=== PATIENT | male | born 1945 | race Caucasian/White ===

== ENCOUNTER 2016-07-01 09:01 | Outpatient (CLI) | payer MEDICARE, MEDICAID ==
--- NOTE | 2016-07-01 16:26 | RAD ---
BILATERAL KNEES WEIGHTBEARING: Date: 07-01-16 Technique: Two upright views of each knee were obtained. FINDINGS: There is complete obliteration of the medial joint space in each knee. Osteophytes and bony scleros is are present, typical of osteoarthritis. The lateral joint spaces are preserved. No fractures w ere appreciated. There is calcification along the medial aspect of the left knee which could be fro m a prior medial collateral ligament injury. IMPRESSION: Severe osteoarthritis with complete loss of each medial joint space. POS: HOME
== END 2016-07-01 09:02 | disposition home or self-care (01) ==
LOC: BURRAD 09:01
PROVIDERS: ATTEND Family Medicine
DX: M17.0 Bilateral primary osteoarthritis of knee (principal)
CPT/HCPCS: 73565

== ENCOUNTER 2016-12-13 15:27 | Outpatient (CLI) | payer MEDICARE, MEDICAID ==
[2016-12-13 16:30] LABS: #Basophils 0.1 thou/uL (0.0-0.2); #Lymphocytes 1.1 thou/uL (1.20-3.40); #Monocytes 0.6 thou/uL (0.11-0.59); #Neutrophils 5.6 thou/uL (1.40-6.50); %Basophils 0.7 % (0.0-1.0); %Eosinophils 0.2 % (0.0-10.0); %Lymphocytes 14.5 % (21.0-51.0); %Monocytes 8.5 % (0.0-10.0); %Neutrophils 76.1 % (42.0-75.0); Hemoglobin 15.7 g/dL (14.0-18.0); Mean Corpuscular HGB CONC 33.5 g/dL (32.0-36.0); Mean Corpuscular Hemoglobin 31.8 pg (27.0-31.0); Mean Corpuscular Volume 94.8 fl (80.0-94.0); Mean Platelet Volume 10.1 fL (7.4-10.4); Platelet Count 213 thou/uL (130-400); RBC Distribution Width 12.1 % (11.5-14.5); Red Blood Cell (RBC) Count 4.94 mill/uL (4.70-6.10); White Blood Cell (WBC) Count 7.4 thou/uL (4.8-10.8)
[2016-12-13 16:54] LABS: ALT (SGPT) 16 U/L (8-55); AST (SGOT) 20 U/L (5-34); Albumin 3.8 g/dL (3.4-4.8); Alkaline Phosphatase 95 U/L (40-150); Anion Gap 15 mmol/L (10-20); BUN (Urea Nitrogen) 11 mg/dL (8.4-25.7); Bilirubin, Total 0.7 mg/dL (0.2-1.2); Calc. Creatinine Clearance 0 mL/min (70-130); Carbon Dioxide 21 mmol/L (23-31); Chloride 98 mmol/L (98-107); Estimated GFR-MDRD Greater than 90; Globulin 3.1 g/dL (2.4-3.5); Glucose 91 mg/dL (83-110); Lipase 30 U/L (8-78); Potassium 4.8 mmol/L (3.5-5.1); Protein, Total 6.9 g/dL (5.8-8.1); Sodium 129 mmol/L (136-145)
== END 2016-12-13 15:28 | disposition home or self-care (01) ==
LOC: HPCALD 15:27
PROVIDERS: ATTEND Family Medicine
DX: R19.7 Diarrhea, unspecified (principal); R10.84 Generalized abdominal pain
CPT/HCPCS: 36415; 80053; 83690; 85025

== ENCOUNTER 2016-12-14 17:23 | Outpatient (CLI) | payer MEDICARE, MEDICAID | END 2016-12-14 17:24 | disposition home or self-care (01) | LOC: BURLAB 17:23 | PROVIDERS: ATTEND Family Medicine | DX: R19.7 Diarrhea, unspecified (principal) | CPT/HCPCS: 83630; 87015; 87045; 87046; 87177; 87324; 87449; 87899 ==

== ENCOUNTER 2017-02-22 10:38 | Outpatient (CLI) | payer MEDICARE, MEDICAID ==
[2017-02-22 11:34] LABS: #Eosinphils 0.1 thou/uL (0.0-0.7); #Lymphocytes 1.2 thou/uL (1.20-3.40); #Monocytes 0.7 thou/uL (0.11-0.59); #Neutrophils 5.3 thou/uL (1.40-6.50); %Basophils 0.6 % (0.0-1.0); %Eosinophils 1.8 % (0.0-10.0); %Lymphocytes 16.6 % (21.0-51.0); %Monocytes 9.2 % (0.0-10.0); %Neutrophils 71.8 % (42.0-75.0); Hemoglobin 16.2 g/dL (14.0-18.0); Mean Corpuscular HGB CONC 34.1 g/dL (32.0-36.0); Mean Corpuscular Hemoglobin 33.3 pg (27.0-31.0); Mean Corpuscular Volume 97.7 fl (80.0-94.0); Mean Platelet Volume 9.1 fL (7.4-10.4); Platelet Count 189 thou/uL (130-400); RBC Distribution Width 11.3 % (11.5-14.5); Red Blood Cell (RBC) Count 4.88 mill/uL (4.70-6.10); White Blood Cell (WBC) Count 7.4 thou/uL (4.8-10.8)
[2017-02-22 11:45] LABS: PSA-Asymptomatic (SCREENING) 2.11 ng/mL (0-4.0); Thyroid Stimulating Hormone 2.6498 uIU/mL (0.35-4.94)
[2017-02-22 12:07] LABS: ALT (SGPT) 13 U/L (8-55); AST (SGOT) 18 U/L (5-34); Albumin 3.7 g/dL (3.4-4.8); Alkaline Phosphatase 113 U/L (40-150); Anion Gap 13 mmol/L (10-20); BUN (Urea Nitrogen) 15 mg/dL (8.4-25.7); Bilirubin, Total 1.1 mg/dL (0.2-1.2); Calc. Creatinine Clearance 0 mL/min (70-130); Calcium 9.3 mg/dL (7.8-10.44); Carbon Dioxide 25 mmol/L (23-31); Cardiac Risk 2.6 (Less than 4.5); Chloride 99 mmol/L (98-107); Cholesterol 140 mg/dl (< 200 Desired); Estimated GFR-MDRD Greater than 90; Globulin 3.2 g/dL (2.4-3.5); Glucose 70 mg/dL (83-110); HDL Cholesterol 54 mg/dL (>60 Neg Risk); LDL Cholesterol, Calculated 74 mg/dL; Potassium 4.4 mmol/L (3.5-5.1); Protein, Total 6.9 g/dL (5.8-8.1); Sodium 133 mmol/L (136-145); Triglycerides 60 mg/dL (Less than 150)
[2017-02-22 17:38] LABS: Valproic Acid (Depakene) 60.7 ug/mL (50.0-100.0)
== END 2017-02-22 10:39 | disposition home or self-care (01) ==
LOC: HPCALD 10:38
PROVIDERS: ATTEND Family Medicine
DX: Z12.5 Encounter for screening for malignant neoplasm of prostate (principal); Z13.6 Encounter for screening for cardiovascular disorders; F31.9 Bipolar disorder, unspecified
CPT/HCPCS: 36415; 80053; 80061; 80164; 84443; 85025; G0103

== ENCOUNTER 2018-07-10 10:03 | Emergency (ER) | payer MEDICARE, OTHER ==
[2018-07-10 10:36] LABS: #Basophils 0.1 thou/uL (0.0-0.2); #Eosinphils 0.1 thou/uL (0.0-0.7); #Lymphocytes 0.7 thou/uL (1.20-3.40); #Monocytes 0.4 thou/uL (0.11-0.59); #Neutrophils 2.2 thou/uL (1.40-6.50); %Basophils 1.9 % (0.0-1.0); %Eosinophils 2.2 % (0.0-10.0); %Lymphocytes 20.3 % (21.0-51.0); %Monocytes 10.3 % (0.0-10.0); %Neutrophils 65.4 % (42.0-75.0); Mean Corpuscular HGB CONC 34.4 g/dL (32.0-36.0); Mean Platelet Volume 10.5 fL (7.4-10.4); Platelet Count 133 thou/uL (130-400); RBC Distribution Width 11.6 % (11.5-14.5); White Blood Cell (WBC) Count 3.4 thou/uL (4.8-10.8)
[2018-07-10 10:49] LABS: ALT (SGPT) 17 U/L (8-55); AST (SGOT) 19 U/L (5-34); Albumin 3.5 g/dL (3.4-4.8); Alkaline Phosphatase 106 U/L (40-150); Anion Gap 12 mmol/L (10-20); BUN (Urea Nitrogen) 13 mg/dL (8.4-25.7); Bilirubin, Total 0.6 mg/dL (0.2-1.2); Calc. Creatinine Clearance 0 mL/min (70-130); Calcium 9.2 mg/dL (7.8-10.44); Carbon Dioxide 23 mmol/L (23-31); Chloride 103 mmol/L (98-107); Estimated GFR-MDRD Greater than 90; Globulin 2.9 g/dL (2.4-3.5); Glucose 102 mg/dL (83-110); Potassium 4.7 mmol/L (3.5-5.1); Protein, Total 6.4 g/dL (5.8-8.1); Sodium 133 mmol/L (136-145)
--- NOTE | 2018-07-10 19:22 | RAD ---
CHEST TWO VIEWS: 07/10/18 Comparison is made with the 04/19/15 study. An old fracture of the left 7th rib posterolaterally was noted. It can be seen on the 2015 film. No new fractures were detected, however, dedicated rib films would be needed to better see fine detail. There was no sign of pneumothorax or significant pleural e ffusion. There are no lobar infiltrates. The heart size is normal. there is no vascular congestion or edema. Degenerative changes are present in the spine. IMPRESSION: 1. No acute thoracic findings. 2. Old fracture of the right 7th rib. POS: HOME
== END 2018-07-10 11:16 | disposition home or self-care (01) ==
LOC: BURERS 10:03
DX: S22.31XA Fracture of one rib, right side, initial encounter for closed fracture (principal); D64.9 Anemia, unspecified; I25.10 Atherosclerotic heart disease of native coronary artery without angina pectoris; I50.9 Heart failure, unspecified; I48.91 Unspecified atrial fibrillation; I11.0 Hypertensive heart disease with heart failure; J44.9 Chronic obstructive pulmonary disease, unspecified; F31.9 Bipolar disorder, unspecified; F17.210 Nicotine dependence, cigarettes, uncomplicated; X58.XXXA Exposure to other specified factors, initial encounter
CPT/HCPCS: 71046; 80053; 83880; 84484; 85025; 85379; 93005; 94760; 94799

== ENCOUNTER 2019-02-18 08:06 | Emergency (ER) | payer MEDICARE, OTHER ==
[2019-02-18 08:35] LABS: #Basophils 0.1 thou/uL (0.0-0.2); #Eosinphils 0.1 thou/uL (0.0-0.7); #Lymphocytes 1.4 thou/uL (1.20-3.40); #Monocytes 0.7 thou/uL (0.11-0.59); #Neutrophils 3.7 thou/uL (1.40-6.50); %Basophils 1.3 % (0.0-1.0); %Eosinophils 1.6 % (0.0-10.0); %Lymphocytes 23.2 % (21.0-51.0); %Monocytes 11.9 % (0.0-10.0); %Neutrophils 62.1 % (42.0-75.0); Hemoglobin 14.5 g/dL (14.0-18.0); Mean Corpuscular HGB CONC 32.8 g/dL (32.0-36.0); Mean Corpuscular Volume 97.4 fL (78.0-98.0); Platelet Count 212 thou/uL (130-400); RBC Distribution Width 11.1 % (11.5-14.5); Red Blood Cell (RBC) Count 4.55 mill/uL (4.70-6.10)
[2019-02-18 08:52] LABS: ALT (SGPT) 11 U/L (8-55); AST (SGOT) 18 U/L (5-34); Albumin 3.5 g/dL (3.4-4.8); Alkaline Phosphatase 109 U/L (40-150); Anion Gap 15 mmol/L (10-20); BUN (Urea Nitrogen) 13 mg/dL (8.4-25.7); Bilirubin, Total 0.7 mg/dL (0.2-1.2); Calc. Creatinine Clearance 0 mL/min (70-130); Calcium 9.2 mg/dL (7.8-10.44); Carbon Dioxide 22 mmol/L (23-31); Chloride 96 mmol/L (98-107); Estimated GFR-MDRD 90; Globulin 3.1 g/dL (2.4-3.5); Glucose 68 mg/dL (83-110); Potassium 3.9 mmol/L (3.5-5.1); Protein, Total 6.6 g/dL (5.8-8.1); Sodium 129 mmol/L (136-145)
[2019-02-18] MEDS ORDERED: Dextrose 50% Abboject 50 ML SYRINGE ONE (09:04)
[2019-02-18] MEDS ORDERED: Fentanyl 100 MCG/2 ML VIAL ONE (09:05)
--- NOTE | 2019-02-18 13:11 | CT ---
CT OF THE BRAIN: DATE: 02/18/19 Comparison is made with a [address] CT[address] Atrophy and chronic ischemic changes have advanced in the interval. There is more compensatory dilata tion of the ventricles because of the atrophy. No intracranial bleeding, stroke, or extra-axial hemat bo seen. There is no sign of mass or edema. The calvarium appears intact. The sphenoid sinus and mas toid air cells are clear. No fractures noted. IMPRESSION: 1. No acute intracranial findings. 2. Moderately severe atrophy and chronic ischemic change, which has advanced since the 2015 CT. POS: HOME
--- NOTE | 2019-02-18 13:13 | RAD ---
PORTABLE CHEST: Date: 02/18/19 Comparison is made with the 07/10/18 study. Cardiac size is stable. Old rib fractures are noted on the right as before. The lungs are currently c lear and there are no effusions. Mediastinum shows no widening or shift. IMPRESSION: Chronic changes, but no acute finding. POS: HOME
--- NOTE | 2019-02-18 13:15 | RAD ---
PELVIS 1 VIEW: Date: 02/18/19 An intertrochanteric fracture of the right hip is noted. The lesser trochanter is avulsed and separat ed from the remainder of the bone. There is no dislocation of the femoral heads. Arthritic changes ar e present to a mild degree in each hip joint. The bony pelvis appears intact. Subtle fractures around the SI joints or sacrum would be missed on this study due to overlying gas and fecal material. IMPRESSION: Intertrochanteric fracture of the right femur with avulsion of the lesser trochanter. POS: HOME
== END 2019-02-18 09:58 | disposition short-term general hospital (02) ==
LOC: BURERS 08:06
DX: S72.144A Nondisplaced intertrochanteric fracture of right femur, initial encounter for closed fracture (principal); R55 Syncope and collapse; D64.9 Anemia, unspecified; I25.10 Atherosclerotic heart disease of native coronary artery without angina pectoris; I48.91 Unspecified atrial fibrillation; I11.0 Hypertensive heart disease with heart failure; I50.9 Heart failure, unspecified; J44.9 Chronic obstructive pulmonary disease, unspecified; Z87.891 Personal history of nicotine dependence; F31.9 Bipolar disorder, unspecified; Z79.899 Other long term (current) drug therapy; Z79.51 Long term (current) use of inhaled steroids; W19.XXXA Unspecified fall, initial encounter
CPT/HCPCS: 70450; 71045; 72170; 80053; 83605; 83880; 84484; 85025; 93005; 96361; 96374; 96375; J3010

== ENCOUNTER 2019-02-27 08:23 | Inpatient (IN) | payer MEDICARE, OTHER ==
[2019-02-27] MEDS ORDERED: traMADol HCl 50 MG TAB PO PRN (16:44)
[2019-02-27] MEDS ORDERED: Acetaminophen 325 MG TAB PO PRN (16:44)
[2019-02-27] MEDS: Acetaminophen 500 MG TAB PO SCH (17:44)
[2019-02-27] MEDS: Mirtazapine 15 MG TAB PO SCH (20:15)
[2019-02-27] MEDS: Aspirin 81 mg Enteric Coated Tablet PO SCH (20:15)
[2019-02-27] MEDS: Calcium Carbonate + Vit D 1 TAB PO SCH (20:15)
[2019-02-27] MEDS: Melatonin 3 MG TAB PO SCH (20:15)
[2019-02-27] MEDS: Carbidopa/Levodopa 25-100 mg Tablet PO SCH (20:16)
[2019-02-27] MEDS: Ibuprofen 200 MG TAB PO SCH (22:41)
[2019-02-27] MEDS: AMANTADINE HCL 100 MG PO SCH (22:42)
[2019-02-27] MEDS: Potassium Chloride 20 MEQ TAB PO SCH (22:44)
[2019-02-28] MEDS: Acetaminophen 500 MG TAB PO SCH ×4 (00:13→17:32)
[2019-02-28] MEDS: Ibuprofen 200 MG TAB PO SCH ×3 (05:27→21:28)
[2019-02-28] MEDS ORDERED: Polyethylene Glycol 3350 17 GM Packet PO SCH (09:00)
[2019-02-28] MEDS: Aspirin 81 mg Enteric Coated Tablet PO SCH ×2 (10:00→21:27)
[2019-02-28] MEDS: Finasteride 5 MG TAB PO SCH (10:00)
[2019-02-28] MEDS: FLUoxetine HCl 10 MG CAP PO SCH (10:00)
[2019-02-28] MEDS: Meloxicam 7.5 MG TAB PO SCH (10:03)
[2019-02-28] MEDS: Carbidopa/Levodopa 25-100 mg Tablet PO SCH ×2 (10:04→21:28)
[2019-02-28] MEDS: Calcium Carbonate + Vit D 1 TAB PO SCH ×2 (10:04→21:29)
[2019-02-28] MEDS: Fish Oil 1,000 MG CAP PO SCH (10:04)
[2019-02-28] MEDS: Metoprolol Tartrate 25 MG TAB PO SCH (10:04)
[2019-02-28] MEDS: Potassium Chloride 20 MEQ TAB PO SCH ×2 (10:06→21:28)
[2019-02-28] MEDS: AMANTADINE HCL 100 MG PO SCH ×2 (10:10→22:25)
[2019-02-28] MEDS ORDERED: Polyethylene Glycol 3350 17 GM Packet PO PRN (16:30)
[2019-02-28] MEDS: Mirtazapine 15 MG TAB PO SCH (21:28)
[2019-02-28] MEDS: Melatonin 3 MG TAB PO SCH (21:29)
[2019-03-01] MEDS: Acetaminophen 500 MG TAB PO SCH ×5 (00:18→23:56)
[2019-03-01] MEDS ORDERED: Ibuprofen 200 MG TAB ONE (04:58)
[2019-03-01] MEDS: Ibuprofen 200 MG TAB PO SCH ×3 (05:04→21:55)
[2019-03-01] MEDS: Aspirin 81 mg Enteric Coated Tablet PO SCH ×2 (08:19→20:16)
[2019-03-01] MEDS: Calcium Carbonate + Vit D 1 TAB PO SCH ×2 (08:19→20:16)
[2019-03-01] MEDS: FLUoxetine HCl 10 MG CAP PO SCH (08:19)
[2019-03-01] MEDS: Meloxicam 7.5 MG TAB PO SCH (08:20)
[2019-03-01] MEDS: Finasteride 5 MG TAB PO SCH (08:20)
[2019-03-01] MEDS: Carbidopa/Levodopa 25-100 mg Tablet PO SCH ×2 (08:20→20:18)
[2019-03-01] MEDS: Metoprolol Tartrate 25 MG TAB PO SCH (08:20)
[2019-03-01] MEDS: Potassium Chloride 20 MEQ TAB PO SCH ×2 (08:20→20:18)
[2019-03-01] MEDS: Fish Oil 1,000 MG CAP PO SCH (08:21)
[2019-03-01] MEDS: AMANTADINE HCL 100 MG PO SCH ×2 (11:20→20:16)
[2019-03-01] MEDS: Mirtazapine 15 MG TAB PO SCH (20:17)
[2019-03-01] MEDS: Melatonin 3 MG TAB PO SCH (20:17)
[2019-03-02] MEDS: Acetaminophen 500 MG TAB PO SCH ×4 (05:37→23:37)
[2019-03-02] MEDS: Ibuprofen 200 MG TAB PO SCH ×3 (05:37→21:02)
[2019-03-02] MEDS: Aspirin 81 mg Enteric Coated Tablet PO SCH ×2 (08:33→20:59)
[2019-03-02] MEDS: FLUoxetine HCl 10 MG CAP PO SCH (08:34)
[2019-03-02] MEDS: Finasteride 5 MG TAB PO SCH (08:34)
[2019-03-02] MEDS: Carbidopa/Levodopa 25-100 mg Tablet PO SCH ×2 (08:34→21:10)
[2019-03-02] MEDS: Calcium Carbonate + Vit D 1 TAB PO SCH ×2 (08:34→20:57)
[2019-03-02] MEDS: Meloxicam 7.5 MG TAB PO SCH (08:35)
[2019-03-02] MEDS: Fish Oil 1,000 MG CAP PO SCH (08:35)
[2019-03-02] MEDS: Potassium Chloride 20 MEQ TAB PO SCH ×2 (08:36→21:00)
[2019-03-02] MEDS: Metoprolol Tartrate 25 MG TAB PO SCH (08:36)
[2019-03-02] MEDS: AMANTADINE HCL 100 MG PO SCH ×2 (11:21→21:05)
[2019-03-02] MEDS: Melatonin 3 MG TAB PO SCH (20:59)
[2019-03-02] MEDS: Mirtazapine 15 MG TAB PO SCH (21:01)
[2019-03-03] MEDS: Acetaminophen 500 MG TAB PO SCH ×3 (05:33→17:27)
[2019-03-03] MEDS: Ibuprofen 200 MG TAB PO SCH ×3 (05:36→21:08)
[2019-03-03] MEDS: Finasteride 5 MG TAB PO SCH (08:55)
[2019-03-03] MEDS: Meloxicam 7.5 MG TAB PO SCH (08:55)
[2019-03-03] MEDS: FLUoxetine HCl 10 MG CAP PO SCH (08:56)
[2019-03-03] MEDS: Aspirin 81 mg Enteric Coated Tablet PO SCH ×2 (08:56→21:07)
[2019-03-03] MEDS: Calcium Carbonate + Vit D 1 TAB PO SCH ×2 (08:57→21:06)
[2019-03-03] MEDS: Carbidopa/Levodopa 25-100 mg Tablet PO SCH ×3 (08:57→21:09)
[2019-03-03] MEDS: Fish Oil 1,000 MG CAP PO SCH (08:57)
[2019-03-03] MEDS: Potassium Chloride 20 MEQ TAB PO SCH ×2 (08:57→21:07)
[2019-03-03] MEDS: Metoprolol Tartrate 25 MG TAB PO SCH (08:58)
[2019-03-03] MEDS: AMANTADINE HCL 100 MG PO SCH ×2 (09:00→21:09)
[2019-03-03] MEDS ORDERED: Ibuprofen 200 MG TAB ONE (20:57)
[2019-03-03] MEDS: Melatonin 3 MG TAB PO SCH (21:08)
[2019-03-03] MEDS: Mirtazapine 15 MG TAB PO SCH (21:08)
[2019-03-04] MEDS: Acetaminophen 500 MG TAB PO SCH ×5 (00:15→23:55)
[2019-03-04] MEDS ORDERED: Ibuprofen 200 MG TAB ONE (05:18)
[2019-03-04] MEDS: Ibuprofen 200 MG TAB PO SCH ×3 (05:34→21:18)
[2019-03-04] MEDS: FLUoxetine HCl 10 MG CAP PO SCH (08:22)
[2019-03-04] MEDS: Fish Oil 1,000 MG CAP PO SCH (08:22)
[2019-03-04] MEDS: Aspirin 81 mg Enteric Coated Tablet PO SCH ×2 (08:22→21:18)
[2019-03-04] MEDS: Potassium Chloride 20 MEQ TAB PO SCH ×2 (08:22→21:18)
[2019-03-04] MEDS: Metoprolol Tartrate 25 MG TAB PO SCH (08:23)
[2019-03-04] MEDS: Carbidopa/Levodopa 25-100 mg Tablet PO SCH ×2 (08:23→21:18)
[2019-03-04] MEDS: Calcium Carbonate + Vit D 1 TAB PO SCH ×2 (08:23→21:18)
[2019-03-04] MEDS: Meloxicam 7.5 MG TAB PO SCH (08:23)
[2019-03-04] MEDS: Finasteride 5 MG TAB PO SCH (08:23)
[2019-03-04] MEDS: AMANTADINE HCL 100 MG PO SCH ×2 (08:25→21:19)
[2019-03-04] MEDS ORDERED: Acetaminophen 500 MG TAB ONE (12:06)
[2019-03-04] MEDS: Melatonin 3 MG TAB PO SCH (21:18)
[2019-03-04] MEDS: Mirtazapine 15 MG TAB PO SCH (21:19)
[2019-03-05] MEDS: Ibuprofen 200 MG TAB PO SCH ×2 (06:14→15:14)
[2019-03-05] MEDS: Acetaminophen 500 MG TAB PO SCH ×3 (06:15→17:47)
[2019-03-05] MEDS: Fish Oil 1,000 MG CAP PO SCH (08:29)
[2019-03-05] MEDS: Potassium Chloride 20 MEQ TAB PO SCH ×2 (08:29→20:55)
[2019-03-05] MEDS: FLUoxetine HCl 10 MG CAP PO SCH (08:29)
[2019-03-05] MEDS: Calcium Carbonate + Vit D 1 TAB PO SCH ×2 (08:29→20:51)
[2019-03-05] MEDS: AMANTADINE HCL 100 MG PO SCH ×2 (08:29→20:58)
[2019-03-05] MEDS: Finasteride 5 MG TAB PO SCH (08:29)
[2019-03-05] MEDS: Aspirin 81 mg Enteric Coated Tablet PO SCH ×2 (08:29→20:57)
[2019-03-05] MEDS: Carbidopa/Levodopa 25-100 mg Tablet PO SCH ×2 (08:29→20:56)
[2019-03-05] MEDS: Metoprolol Tartrate 25 MG TAB PO SCH (08:30)
[2019-03-05] MEDS: Meloxicam 7.5 MG TAB PO SCH (08:30)
[2019-03-05] MEDS: Loperamide HCl 2 MG CAP PO PRN (15:31)
[2019-03-05] MEDS: traMADol HCl 50 MG TAB PO PRN (16:47)
[2019-03-05] MEDS: Melatonin 3 MG TAB PO SCH (20:56)
[2019-03-05] MEDS: Mirtazapine 15 MG TAB PO SCH (20:58)
[2019-03-05] MEDS: Ibuprofen 600 MG TAB PO SCH (21:00)
[2019-03-06] MEDS: Acetaminophen 500 MG TAB PO SCH ×4 (00:22→17:00)
[2019-03-06] MEDS: Ibuprofen 600 MG TAB PO SCH ×3 (05:53→21:03)
[2019-03-06] MEDS: Calcium Carbonate + Vit D 1 TAB PO SCH ×2 (09:08→20:49)
[2019-03-06] MEDS: FLUoxetine HCl 10 MG CAP PO SCH (09:08)
[2019-03-06] MEDS: Finasteride 5 MG TAB PO SCH (09:08)
[2019-03-06] MEDS: Potassium Chloride 20 MEQ TAB PO SCH ×2 (09:08→20:48)
[2019-03-06] MEDS: Aspirin 81 mg Enteric Coated Tablet PO SCH ×2 (09:08→20:49)
[2019-03-06] MEDS: Metoprolol Tartrate 25 MG TAB PO SCH (09:09)
[2019-03-06] MEDS: Fish Oil 1,000 MG CAP PO SCH (09:09)
[2019-03-06] MEDS: Meloxicam 7.5 MG TAB PO SCH (09:09)
[2019-03-06] MEDS: Carbidopa/Levodopa 25-100 mg Tablet PO SCH ×2 (09:10→20:50)
[2019-03-06] MEDS: AMANTADINE HCL 100 MG PO SCH ×2 (09:10→20:51)
[2019-03-06] MEDS: traMADol HCl 50 MG TAB PO PRN (12:07)
[2019-03-06] MEDS: Mirtazapine 15 MG TAB PO SCH (20:50)
[2019-03-06] MEDS: Melatonin 3 MG TAB PO SCH (20:50)
[2019-03-07] MEDS: Acetaminophen 500 MG TAB PO SCH ×5 (00:09→22:57)
[2019-03-07] MEDS: Ibuprofen 600 MG TAB PO SCH ×3 (06:19→22:58)
[2019-03-07] MEDS: Metoprolol Tartrate 25 MG TAB PO SCH (09:05)
[2019-03-07] MEDS: Carbidopa/Levodopa 25-100 mg Tablet PO SCH ×2 (09:06→20:42)
[2019-03-07] MEDS: FLUoxetine HCl 10 MG CAP PO SCH (09:06)
[2019-03-07] MEDS: Fish Oil 1,000 MG CAP PO SCH (09:06)
[2019-03-07] MEDS: Meloxicam 7.5 MG TAB PO SCH (09:06)
[2019-03-07] MEDS: Finasteride 5 MG TAB PO SCH (09:09)
[2019-03-07] MEDS: Potassium Chloride 20 MEQ TAB PO SCH ×2 (09:09→20:41)
[2019-03-07] MEDS: Aspirin 81 mg Enteric Coated Tablet PO SCH ×2 (09:09→20:42)
[2019-03-07] MEDS: Calcium Carbonate + Vit D 1 TAB PO SCH ×2 (09:09→20:41)
[2019-03-07] MEDS: AMANTADINE HCL 100 MG PO SCH ×2 (09:11→20:46)
[2019-03-07] MEDS: Melatonin 3 MG TAB PO SCH (20:42)
[2019-03-07] MEDS: Mirtazapine 15 MG TAB PO SCH (20:42)
[2019-03-08] MEDS ORDERED: Acetaminophen 500 MG TAB ONE (05:54)
[2019-03-08] MEDS: Ibuprofen 600 MG TAB PO SCH ×3 (05:58→22:30)
[2019-03-08] MEDS: Acetaminophen 500 MG TAB PO SCH ×3 (05:58→17:45)
[2019-03-08] MEDS: AMANTADINE HCL 100 MG PO SCH ×2 (08:33→20:31)
[2019-03-08] MEDS: Calcium Carbonate + Vit D 1 TAB PO SCH ×2 (08:34→20:28)
[2019-03-08] MEDS: Metoprolol Tartrate 25 MG TAB PO SCH (08:34)
[2019-03-08] MEDS: Potassium Chloride 20 MEQ TAB PO SCH ×2 (08:36→20:28)
[2019-03-08] MEDS: Aspirin 81 mg Enteric Coated Tablet PO SCH ×2 (08:36→20:28)
[2019-03-08] MEDS: Finasteride 5 MG TAB PO SCH (08:36)
[2019-03-08] MEDS: FLUoxetine HCl 10 MG CAP PO SCH (08:36)
[2019-03-08] MEDS: Carbidopa/Levodopa 25-100 mg Tablet PO SCH ×2 (08:36→20:32)
[2019-03-08] MEDS: Fish Oil 1,000 MG CAP PO SCH (08:36)
[2019-03-08] MEDS: Meloxicam 7.5 MG TAB PO SCH (08:37)
[2019-03-08] MEDS: Melatonin 3 MG TAB PO SCH (20:28)
[2019-03-08] MEDS: Mirtazapine 15 MG TAB PO SCH (20:29)
[2019-03-09] MEDS: Acetaminophen 500 MG TAB PO SCH ×5 (00:23→23:50)
[2019-03-09] MEDS: Ibuprofen 600 MG TAB PO SCH ×3 (05:30→20:29)
[2019-03-09] MEDS: FLUoxetine HCl 10 MG CAP PO SCH (09:16)
[2019-03-09] MEDS: Calcium Carbonate + Vit D 1 TAB PO SCH ×2 (09:16→20:29)
[2019-03-09] MEDS: Fish Oil 1,000 MG CAP PO SCH (09:16)
[2019-03-09] MEDS: Potassium Chloride 20 MEQ TAB PO SCH ×2 (09:17→20:30)
[2019-03-09] MEDS: Meloxicam 7.5 MG TAB PO SCH (09:17)
[2019-03-09] MEDS: Aspirin 81 mg Enteric Coated Tablet PO SCH ×2 (09:17→20:31)
[2019-03-09] MEDS: Finasteride 5 MG TAB PO SCH (09:17)
[2019-03-09] MEDS: Metoprolol Tartrate 25 MG TAB PO SCH (09:18)
[2019-03-09] MEDS: Carbidopa/Levodopa 25-100 mg Tablet PO SCH ×2 (09:19→20:30)
[2019-03-09] MEDS: AMANTADINE HCL 100 MG PO SCH ×2 (09:21→20:29)
[2019-03-09 12:14] LABS: Bilirubin Negative (Negative); Blood, Urine Negative (Negative); Clarity Clear (Clear); Glucose, Urine (Dipstick) Negative (Negative); Leukocyte Negative (Negative); Nitrite Negative (Negative); Protein, Urine (Dipstick) Negative (Neg-Trace)
[2019-03-09 12:32] LABS: Bacteria/HPF None Seen HPF (None Seen); Other Microscopic Description C&S SET UP; RBC/HPF None Seen HPF (0-3); Squamous Epithelial 0-3 HPF (0-3); WBC/HPF 0-3 HPF (0-3)
[2019-03-09] MEDS: Mirtazapine 15 MG TAB PO SCH (20:30)
[2019-03-09] MEDS: Melatonin 3 MG TAB PO SCH (20:30)
[2019-03-10] MEDS: Ibuprofen 600 MG TAB PO SCH ×3 (05:13→20:41)
[2019-03-10] MEDS: Acetaminophen 500 MG TAB PO SCH ×3 (05:14→17:42)
[2019-03-10] MEDS: Metoprolol Tartrate 25 MG TAB PO SCH (08:58)
[2019-03-10] MEDS: Fish Oil 1,000 MG CAP PO SCH (08:58)
[2019-03-10] MEDS: Aspirin 81 mg Enteric Coated Tablet PO SCH ×2 (08:58→20:40)
[2019-03-10] MEDS: FLUoxetine HCl 10 MG CAP PO SCH (09:00)
[2019-03-10] MEDS: Meloxicam 7.5 MG TAB PO SCH (09:00)
[2019-03-10] MEDS: Calcium Carbonate + Vit D 1 TAB PO SCH ×2 (09:01→20:41)
[2019-03-10] MEDS: Potassium Chloride 20 MEQ TAB PO SCH ×2 (09:01→20:41)
[2019-03-10] MEDS: Finasteride 5 MG TAB PO SCH (09:01)
[2019-03-10] MEDS: Carbidopa/Levodopa 25-100 mg Tablet PO SCH ×2 (09:01→20:41)
[2019-03-10] MEDS: AMANTADINE HCL 100 MG PO SCH ×2 (09:02→20:38)
[2019-03-10] MEDS: Loperamide HCl 2 MG CAP PO PRN (20:39)
[2019-03-10] MEDS: Mirtazapine 15 MG TAB PO SCH (20:40)
[2019-03-10] MEDS: Melatonin 3 MG TAB PO SCH (22:12)
[2019-03-11] MEDS: Acetaminophen 500 MG TAB PO SCH ×4 (00:08→18:14)
[2019-03-11] MEDS ORDERED: Acetaminophen 500 MG TAB ONE (05:07)
[2019-03-11] MEDS ORDERED: Ibuprofen 200 MG TAB ONE (05:08)
[2019-03-11] MEDS: Ibuprofen 600 MG TAB PO SCH ×3 (05:47→20:35)
[2019-03-11] MEDS: Metoprolol Tartrate 25 MG TAB PO SCH (08:24)
[2019-03-11] MEDS: FLUoxetine HCl 10 MG CAP PO SCH (08:25)
[2019-03-11] MEDS: Meloxicam 7.5 MG TAB PO SCH (08:25)
[2019-03-11] MEDS: Potassium Chloride 20 MEQ TAB PO SCH ×2 (08:25→20:34)
[2019-03-11] MEDS: Fish Oil 1,000 MG CAP PO SCH (08:25)
[2019-03-11] MEDS: Finasteride 5 MG TAB PO SCH (08:25)
[2019-03-11] MEDS: Calcium Carbonate + Vit D 1 TAB PO SCH ×2 (08:25→20:32)
[2019-03-11] MEDS: Carbidopa/Levodopa 25-100 mg Tablet PO SCH ×2 (08:26→20:33)
[2019-03-11] MEDS: Aspirin 81 mg Enteric Coated Tablet PO SCH ×2 (08:26→20:36)
[2019-03-11] MEDS: AMANTADINE HCL 100 MG PO SCH ×2 (08:27→20:45)
[2019-03-11] MEDS: Mirtazapine 15 MG TAB PO SCH (20:34)
[2019-03-11] MEDS: Melatonin 3 MG TAB PO SCH (20:35)
[2019-03-12] MEDS: Acetaminophen 500 MG TAB PO SCH ×5 (00:07→23:26)
[2019-03-12] MEDS: Ibuprofen 600 MG TAB PO SCH ×3 (05:31→21:09)
[2019-03-12] MEDS: Fish Oil 1,000 MG CAP PO SCH (08:03)
[2019-03-12] MEDS: FLUoxetine HCl 10 MG CAP PO SCH (08:03)
[2019-03-12] MEDS: Finasteride 5 MG TAB PO SCH (08:03)
[2019-03-12] MEDS: Aspirin 81 mg Enteric Coated Tablet PO SCH ×2 (08:03→21:08)
[2019-03-12] MEDS: Meloxicam 7.5 MG TAB PO SCH (08:03)
[2019-03-12] MEDS: Metoprolol Tartrate 25 MG TAB PO SCH (08:04)
[2019-03-12] MEDS: Calcium Carbonate + Vit D 1 TAB PO SCH ×2 (08:04→21:07)
[2019-03-12] MEDS: Carbidopa/Levodopa 25-100 mg Tablet PO SCH ×2 (08:05→21:08)
[2019-03-12] MEDS: Potassium Chloride 20 MEQ TAB PO SCH ×2 (08:05→21:08)
[2019-03-12] MEDS: AMANTADINE HCL 100 MG PO SCH ×2 (08:10→21:09)
[2019-03-12] MEDS: Melatonin 3 MG TAB PO SCH (21:08)
[2019-03-12] MEDS: Mirtazapine 15 MG TAB PO SCH (21:08)
[2019-03-13] MEDS: Acetaminophen 500 MG TAB PO SCH ×3 (05:43→18:45)
[2019-03-13] MEDS: Ibuprofen 600 MG TAB PO SCH ×3 (05:43→21:28)
[2019-03-13] MEDS: Aspirin 81 mg Enteric Coated Tablet PO SCH ×2 (09:23→21:28)
[2019-03-13] MEDS: Finasteride 5 MG TAB PO SCH (09:24)
[2019-03-13] MEDS: Calcium Carbonate + Vit D 1 TAB PO SCH ×2 (09:24→21:27)
[2019-03-13] MEDS: Meloxicam 7.5 MG TAB PO SCH (09:24)
[2019-03-13] MEDS: Fish Oil 1,000 MG CAP PO SCH (09:24)
[2019-03-13] MEDS: FLUoxetine HCl 10 MG CAP PO SCH (09:24)
[2019-03-13] MEDS: Carbidopa/Levodopa 25-100 mg Tablet PO SCH ×2 (09:24→21:28)
[2019-03-13] MEDS: Metoprolol Tartrate 25 MG TAB PO SCH (09:25)
[2019-03-13] MEDS: Potassium Chloride 20 MEQ TAB PO SCH ×2 (09:26→21:27)
[2019-03-13] MEDS: AMANTADINE HCL 100 MG PO SCH ×2 (09:27→21:32)
[2019-03-13] MEDS: Mirtazapine 15 MG TAB PO SCH (21:28)
[2019-03-13] MEDS: Melatonin 3 MG TAB PO SCH (21:29)
[2019-03-14] MEDS: Acetaminophen 500 MG TAB PO SCH ×5 (00:01→23:58)
[2019-03-14] MEDS: Ibuprofen 600 MG TAB PO SCH ×3 (05:26→21:03)
[2019-03-14] MEDS: Calcium Carbonate + Vit D 1 TAB PO SCH ×2 (08:32→21:04)
[2019-03-14] MEDS: Aspirin 81 mg Enteric Coated Tablet PO SCH ×2 (08:32→21:06)
[2019-03-14] MEDS: Finasteride 5 MG TAB PO SCH (08:32)
[2019-03-14] MEDS: Fish Oil 1,000 MG CAP PO SCH (08:32)
[2019-03-14] MEDS: Metoprolol Tartrate 25 MG TAB PO SCH (08:33)
[2019-03-14] MEDS: Meloxicam 7.5 MG TAB PO SCH (08:33)
[2019-03-14] MEDS: Potassium Chloride 20 MEQ TAB PO SCH ×2 (08:34→21:04)
[2019-03-14] MEDS: Carbidopa/Levodopa 25-100 mg Tablet PO SCH ×2 (08:34→21:06)
[2019-03-14] MEDS: FLUoxetine HCl 10 MG CAP PO SCH (08:34)
[2019-03-14] MEDS: AMANTADINE HCL 100 MG PO SCH ×2 (08:41→21:38)
[2019-03-14 09:30] VITALS: BMI 25.7
[2019-03-14 17:02] VITALS: TEMP 97.7
[2019-03-14] MEDS: Loperamide HCl 2 MG CAP PO PRN (19:33)
[2019-03-14] MEDS: Mirtazapine 15 MG TAB PO SCH (21:06)
[2019-03-14] MEDS: Melatonin 3 MG TAB PO SCH (21:06)
[2019-03-15] MEDS: Acetaminophen 500 MG TAB PO SCH ×2 (05:46→12:07)
[2019-03-15] MEDS: Ibuprofen 600 MG TAB PO SCH (05:47)
[2019-03-15 06:03] VITALS: BP 116/73
[2019-03-15] MEDS: FLUoxetine HCl 10 MG CAP PO SCH (08:55)
[2019-03-15] MEDS: Calcium Carbonate + Vit D 1 TAB PO SCH (08:55)
[2019-03-15] MEDS: Potassium Chloride 20 MEQ TAB PO SCH (08:55)
[2019-03-15] MEDS: Metoprolol Tartrate 25 MG TAB PO SCH (08:55)
[2019-03-15] MEDS: Fish Oil 1,000 MG CAP PO SCH (08:56)
[2019-03-15] MEDS: Meloxicam 7.5 MG TAB PO SCH (08:56)
[2019-03-15] MEDS: Carbidopa/Levodopa 25-100 mg Tablet PO SCH (08:56)
[2019-03-15] MEDS: Aspirin 81 mg Enteric Coated Tablet PO SCH (08:56)
[2019-03-15] MEDS: AMANTADINE HCL 100 MG PO SCH (08:57)
[2019-03-15] MEDS: Finasteride 5 MG TAB PO SCH (08:57)
--- NOTE | 2019-03-16 04:16 | DIS ---
DATE OF ADMISSION: 02/27/2019 DATE OF DISCHARGE: 03/15/2019 ADMISSION DIAGNOSES: Status post repair of right anterior trochanteric hip fracture. SECONDARY DIAGNOSES: Hypertension, chronic obstructive pulmonary disease, bipolar disorder, tardive dyskinesia, BPH. PROCEDURES PERFORMED: None. HOSPITAL COURSE: A 73-year-old male presented to our facility to participate with Physical Therapy and Occupational Therapy, status post acute admission at [facility] in [place] and after he reportedly had syncopal episode with resultant fall and subsequent fracture of the right hip. The patient underwent surgical repair via Dr. Bynum and thereafter transitioned here for the aforementioned therapy secondary to mobility limitation and compromised functional status. The patient gradually improved here following therapy and had no significant setbacks. He reports having no pain in regard to his recent surgery. His marie have been removed and he was been advised to follow up with Dr. Bynum as an outpatient. He is mobile with the assistance of his walker with no significant pain. Intake and output at baseline, and appropriate for discharge at this time. DISPOSITION: The patient will follow up with myself in the clinic in 1 week and follow up with Dr. Bynum as scheduled. He will stay at home with his daughter and have home health for further therapy. DISCHARGE MEDICATIONS: Include: 1. Tylenol 1000 mg q.6 hours p.r.n. 2. Aspirin 81 mg b.i.d. 3. Calcium carbonate with vitamin D p.o. b.i.d. 4. Carbidopa/levodopa 25-100 p.o. b.i.d. 5. Divalproex sodium ER 1500 mg at bedtime. 6. Finasteride 5 mg daily. 7. Fish oil 1000 mg daily. 8. Fluoxetine 20 mg daily. 9. DuoNeb 3 mL q.4 hours p.r.n. 10. Melatonin 3 mg at bedtime. 11. Meloxicam 15 mg daily. 12. Metoprolol tartrate 12.5 mg daily. 13. Mirtazapine 7.5 mg at bedtime. 14. Protonix 40 mg daily. 15. MiraLAX 17 g daily p.r.n. 16. Potassium chloride 20 mEq p.o. b.i.d. 17. Tramadol 50 mg q.6 hours. Job ID: [id number] [facility]
== END 2019-03-15 12:52 | disposition home or self-care (01) | DRG 561 ==
LOC: BURMED 15:09
PROVIDERS: ADMIT Family Medicine; ATTEND Family Medicine
DX: S72.091 Other fracture of head and neck of right femur (principal); J44.9 Chronic obstructive pulmonary disease, unspecified; D64.9 Anemia, unspecified; I10 Essential (primary) hypertension; F31.9 Bipolar disorder, unspecified; G24.01 Drug induced subacute dyskinesia; N40.0 Benign prostatic hyperplasia without lower urinary tract symptoms; Z87.891 Personal history of nicotine dependence; R32 Unspecified urinary incontinence
CPT/HCPCS: 81001; 87086; 87324; 87449; J7620

== ENCOUNTER 2019-06-18 13:38 | Emergency (ER) | payer MEDICARE, OTHER ==
[2019-06-18] MEDS ORDERED: Lidocaine 1% PF 5 ML VIAL ONE (14:33)
--- NOTE | 2019-06-18 14:34 | RAD ---
LEFT KNEE 4 VIEWS: Date: 06/18/19 Arthritic changes are present consisting of medial joint space narrowing and osteophytes. Osteophytes are particularly prominent in the patellofemoral joint. No fracture or area of bony destruction seen , but there is a sizeable joint effusion. Arteriosclerotic change is present. IMPRESSION: 1. Moderately severe arthritic changes, particularly in the medial compartment and the patellofemora l joint. 2. Large joint effusion. POS: HOME
[2019-06-18 16:39] LABS: Synovial Fluid, Protein 3.2 g/dL (Not Available); Synovial Fluid, Uric Acid 4.3 mg/dL (Not Available)
[2019-06-18 16:46] LABS: #Basophils 0.1 thou/uL (0.0-0.2); #Eosinphils 0.1 thou/uL (0.0-0.7); #Lymphocytes 1.1 thou/uL (1.20-3.40); #Monocytes 0.8 thou/uL (0.11-0.59); #Neutrophils 5.5 thou/uL (1.40-6.50); %Basophils 0.9 % (0.0-1.0); %Eosinophils 1.6 % (0.0-10.0); %Lymphocytes 14.3 % (21.0-51.0); %Monocytes 11.1 % (0.0-10.0); %Neutrophils 72.1 % (42.0-75.0); Hemoglobin 14.1 g/dL (14.0-18.0); Mean Corpuscular HGB CONC 32.2 g/dL (32.0-36.0); Mean Corpuscular Hemoglobin 31.5 pg (27.0-31.0); Mean Corpuscular Volume 97.9 fL (78.0-98.0); Mean Platelet Volume 10.6 fL (7.4-10.4); Platelet Count 192 thou/uL (130-400); RBC Distribution Width 11.5 % (11.5-14.5); Red Blood Cell (RBC) Count 4.48 mill/uL (4.70-6.10); White Blood Cell (WBC) Count 7.6 thou/uL (4.8-10.8)
[2019-06-18 16:49] LABS: Body Fluid Source Synovial Fluid; RBC Count-Automated (BF) 2415 /cumm; WBC/Nucleated-Auto (BF) 17058 uL
[2019-06-18 16:50] LABS: BF Color Yellow; Clarity Hazy (Clear); Tube # EDTA
[2019-06-18] MEDS ORDERED: Ibuprofen 800 MG TAB ONE (17:06)
[2019-06-18 17:13] LABS: BF Segmented Neutrophils 72 %; Cell Count Non Hematic 23 %; Eosinophils 1 %; Lymphocytes 4 %
== END 2019-06-18 17:21 | disposition home or self-care (01) ==
LOC: BURERS 13:38
DX: M13.862 Other specified arthritis, left knee (principal); I11.0 Hypertensive heart disease with heart failure; I50.9 Heart failure, unspecified; J44.9 Chronic obstructive pulmonary disease, unspecified; F31.9 Bipolar disorder, unspecified; I25.10 Atherosclerotic heart disease of native coronary artery without angina pectoris; I48.91 Unspecified atrial fibrillation; Z87.891 Personal history of nicotine dependence; Z79.899 Other long term (current) drug therapy; Z79.51 Long term (current) use of inhaled steroids; Z79.82 Long term (current) use of aspirin
CPT/HCPCS: 20610; 36415; 82945; 84157; 84560; 85025; 85060; 86140; 87070; 87205; 89051; 89060; J2001

== ENCOUNTER 2020-01-31 19:09 | Outpatient (CLI) | payer MEDICARE, OTHER ==
[2020-01-31 20:07] LABS: #Basophils 0.1 thou/uL (0.0-0.2); #Eosinphils 0.1 thou/uL (0.0-0.7); #Lymphocytes 1.1 thou/uL (1.20-3.40); #Monocytes 0.6 thou/uL (0.11-0.59); #Neutrophils 3.6 thou/uL (1.40-6.50); %Eosinophils 1.5 % (0.0-10.0); %Lymphocytes 20.9 % (21.0-51.0); %Monocytes 11.2 % (0.0-10.0); %Neutrophils 65.4 % (42.0-75.0); Hemoglobin 13.7 g/dL (14.0-18.0); Mean Corpuscular HGB CONC 30.3 g/dL (32.0-36.0); Mean Corpuscular Hemoglobin 30.5 pg (27.0-31.0); Mean Platelet Volume 11.4 fL (7.4-10.4); Platelet Count 187 thou/uL (130-400); White Blood Cell (WBC) Count 5.5 thou/uL (4.8-10.8)
[2020-01-31 20:08] LABS: MDiff Complete? YES; Manual Diff?? NO
[2020-01-31 20:15] LABS: ALT (SGPT) 16 U/L (8-55); AST (SGOT) 22 U/L (5-34); Albumin 3.6 g/dL (3.4-4.8); Alkaline Phosphatase 125 U/L (40-110); Anion Gap 13 mmol/L (10-20); BUN (Urea Nitrogen) 12 mg/dL (8.4-25.7); Bilirubin, Total 0.7 mg/dL (0.2-1.2); Calc. Creatinine Clearance 0 mL/min (70-130); Calcium 8.6 mg/dL (7.8-10.44); Carbon Dioxide 24 mmol/L (23-31); Chloride 101 mmol/L (98-107); Estimated GFR-MDRD Greater than 90; Globulin 3.3 g/dL (2.4-3.5); Glucose 100 mg/dL (83-110); Potassium 4.5 mmol/L (3.5-5.1); Protein, Total 6.9 g/dL (5.8-8.1); Sodium 133 mmol/L (136-145)
== END 2020-01-31 19:10 | disposition home or self-care (01) ==
LOC: BURMANOR 19:09
PROVIDERS: ATTEND Registered Nurse Community Health
DX: G24.01 Drug induced subacute dyskinesia (principal); D64.9 Anemia, unspecified; I10 Essential (primary) hypertension; T43.505S Adverse effect of unspecified antipsychotics and neuroleptics, sequela
CPT/HCPCS: 80053; 82306; 83970; 85025

== ENCOUNTER 2020-02-13 13:21 | Outpatient (CLI) | payer MEDICARE, OTHER | END 2020-02-13 13:22 | disposition home or self-care (01) | LOC: BURMANOR 13:21 | PROVIDERS: ATTEND Registered Nurse Community Health | DX: R60.0 Localized edema (principal) | CPT/HCPCS: 83880; 85379 ==

== ENCOUNTER 2020-03-05 12:38 | Outpatient (CLI) | payer MEDICARE ==
[2020-03-05 13:04] LABS: ALT (SGPT) 16 U/L (8-55); AST (SGOT) 21 U/L (5-34); Albumin 3.7 g/dL (3.4-4.8); Alkaline Phosphatase 131 U/L (40-110); Anion Gap 16 mmol/L (10-20); BUN (Urea Nitrogen) 20 mg/dL (8.4-25.7); Bilirubin, Total 0.5 mg/dL (0.2-1.2); Calc. Creatinine Clearance 0 mL/min (70-130); Calcium 8.7 mg/dL (7.8-10.44); Carbon Dioxide 24 mmol/L (23-31); Chloride 105 mmol/L (98-107); Estimated GFR-MDRD Greater than 90; Globulin 3.5 g/dL (2.4-3.5); Protein, Total 7.2 g/dL (5.8-8.1); Sodium 140 mmol/L (136-145)
[2020-03-05 13:14] LABS: Glucose 54 mg/dL (83-110)
== END 2020-03-05 12:39 | disposition home or self-care (01) ==
LOC: BURMANOR 12:38
PROVIDERS: ATTEND Registered Nurse Community Health
DX: I50.9 Heart failure, unspecified (principal)
CPT/HCPCS: 80053; 83880

== ENCOUNTER 2020-07-13 11:26 | Outpatient (CLI) | payer MEDICARE ==
[2020-07-13 11:38] LABS: Hemoglobin 14.4 g/dL (14.0-18.0); Mean Corpuscular HGB CONC 31.8 g/dL (32.0-36.0); Mean Corpuscular Hemoglobin 31.5 pg (27.0-31.0); Mean Corpuscular Volume 98.9 fL (78.0-98.0); Mean Platelet Volume 8.9 fL (7.4-10.4); Platelet Count 250 thou/uL (130-400); RBC Distribution Width 12.1 % (11.5-14.5); Red Blood Cell (RBC) Count 4.58 mill/uL (4.70-6.10); White Blood Cell (WBC) Count 6.4 thou/uL (4.8-10.8)
[2020-07-13 11:39] LABS: Bilirubin Negative (Negative); Blood, Urine Negative (Negative); Clarity Clear (Clear); Glucose, Urine (Dipstick) Negative (Negative); Ketone, Urine Negative (Negative); Leukocyte Negative (Negative); Nitrite Negative (Negative); Protein, Urine (Dipstick) Negative (Neg-Trace); Urobilinogen 0.2 mg/dL (Less than 2); pH, Urine 5.5 (5.0-9.0)
[2020-07-13 11:53] LABS: ALT (SGPT) 19 U/L (8-55); AST (SGOT) 27 U/L (5-34); Albumin 3.7 g/dL (3.4-4.8); Alkaline Phosphatase 125 U/L (40-110); Anion Gap 14 mmol/L (10-20); BUN (Urea Nitrogen) 20 mg/dL (8.4-25.7); Bilirubin, Total 0.7 mg/dL (0.2-1.2); Calc. Creatinine Clearance 0 mL/min (70-130); Calcium 8.7 mg/dL (7.8-10.44); Carbon Dioxide 26 mmol/L (23-31); Chloride 104 mmol/L (98-107); Globulin 2.9 g/dL (2.4-3.5); Glucose 88 mg/dL (83-110); Potassium 5.2 mmol/L (3.5-5.1); Protein, Total 6.6 g/dL (5.8-8.1); Sodium 139 mmol/L (136-145)
== END 2020-07-13 11:27 | disposition home or self-care (01) ==
LOC: BURMANOR 11:26
PROVIDERS: ATTEND Registered Nurse Community Health
DX: R41.82 Altered mental status, unspecified (principal)
CPT/HCPCS: 80053; 81003; 85027; 87086

== ENCOUNTER 2020-07-17 03:29 | Outpatient (CLI) | payer MEDICARE, OTHER | END 2020-07-17 03:30 | disposition home or self-care (01) | LOC: BURMANOR 03:29 | PROVIDERS: ATTEND Registered Nurse Community Health | DX: F31.9 Bipolar disorder, unspecified (principal) | CPT/HCPCS: 80164 ==

== ENCOUNTER 2020-10-06 17:16 | Outpatient (CLI) | payer MEDICARE, MEDICAID ==
[2020-10-06 17:34] LABS: Bilirubin Negative (Negative); Blood, Urine Negative (Negative); Clarity Clear (Clear); Glucose, Urine (Dipstick) Negative (Negative); Ketone, Urine Negative (Negative); Leukocyte Negative (Negative); Nitrite Negative (Negative); Protein, Urine (Dipstick) Negative (Neg-Trace); Specific Gravity, Urine 1.015 (1.005-1.030); pH, Urine 5.5 (5.0-9.0)
[2020-10-06 17:40] LABS: Bacteria/HPF Rare-Few HPF (None Seen); RBC/HPF None Seen HPF (0-3); Squamous Epithelial None Seen HPF (0-3); WBC/HPF None Seen HPF (0-3)
== END 2020-10-06 17:17 | disposition home or self-care (01) ==
LOC: BURMANOR 17:16
PROVIDERS: ATTEND Family Medicine
DX: N39.0 Urinary tract infection, site not specified (principal)
CPT/HCPCS: 81001; 87086

== ENCOUNTER 2021-03-27 12:21 | Emergency (ER) | payer MEDICARE, OTHER ==
[2021-03-27 12:55] LABS: #Basophils 0.1 thou/uL (0.0-0.2); #Lymphocytes 0.4 thou/uL (1.20-3.40); #Monocytes 0.6 thou/uL (0.11-0.59); #Neutrophils 6.4 thou/uL (1.40-6.50); %Basophils 0.8 % (0.0-1.0); %Lymphocytes 5.3 % (21.0-51.0); %Monocytes 8.3 % (0.0-10.0); %Neutrophils 85.7 % (42.0-75.0); Hemoglobin 14.2 g/dL (14.0-18.0); Mean Corpuscular HGB CONC 32.9 g/dL (32.0-36.0); Mean Corpuscular Hemoglobin 30.8 pg (27.0-31.0); Mean Corpuscular Volume 93.4 fL (78.0-98.0); Mean Platelet Volume 9.8 fL (7.4-10.4); Platelet Count 158 thou/uL (130-400); RBC Distribution Width 12.5 % (11.5-14.5); Red Blood Cell (RBC) Count 4.62 mill/uL (4.70-6.10); White Blood Cell (WBC) Count 7.5 thou/uL (4.8-10.8)
[2021-03-27] MEDS ORDERED: Dexamethasone 10 MG/ML VIAL ONE (13:09)
[2021-03-27 13:11] LABS: ALT (SGPT) 19 U/L (8-55); AST (SGOT) 29 U/L (5-34); Albumin 3.3 g/dL (3.4-4.8); Alkaline Phosphatase 98 U/L (40-110); Anion Gap 14 mmol/L (10-20); BUN (Urea Nitrogen) 14 mg/dL (8.4-25.7); Bilirubin, Total 0.6 mg/dL (0.2-1.2); CK (CPK) 258 U/L (30-200); Calc. Creatinine Clearance 0 mL/min (70-130); Calcium 8.1 mg/dL (7.8-10.44); Carbon Dioxide 22 mmol/L (23-31); Chloride 95 mmol/L (98-107); Globulin 3.2 g/dL (2.4-3.5); Glucose 95 mg/dL (83-110); Potassium 3.6 mmol/L (3.5-5.1); Protein, Total 6.5 g/dL (5.8-8.1); Sodium 127 mmol/L (136-145)
[2021-03-27] MEDS ORDERED: Acetaminophen 500 MG TAB ONE (13:11)
== END 2021-03-27 14:46 | disposition home or self-care (01) ==
LOC: BURERS 12:21
DX: U07.1 COVID-19 (principal); J12.82 Pneumonia due to coronavirus disease 2019; D64.9 Anemia, unspecified; I25.10 Atherosclerotic heart disease of native coronary artery without angina pectoris; I50.9 Heart failure, unspecified; I11.0 Hypertensive heart disease with heart failure; J44.9 Chronic obstructive pulmonary disease, unspecified; M10.9 Gout, unspecified; M81.0 Age-related osteoporosis without current pathological fracture; N40.0 Benign prostatic hyperplasia without lower urinary tract symptoms; Z87.891 Personal history of nicotine dependence; E78.5 Hyperlipidemia, unspecified
CPT/HCPCS: 36415; 71045; 80053; 82550; 83605; 83880; 85025; 94760; 96374; J1100

== ENCOUNTER 2021-09-07 17:02 | Outpatient (CLI) | payer MEDICARE, OTHER ==
[2021-09-07 17:33] LABS: Bilirubin Negative (Negative); Blood, Urine Negative (Negative); Clarity Clear (Clear); Glucose, Urine (Dipstick) Negative (Negative); Ketone, Urine Negative (Negative); Leukocyte Negative (Negative); Nitrite Negative (Negative); Protein, Urine (Dipstick) Negative (Neg-Trace); Specific Gravity, Urine 1.015 (1.005-1.030)
== END 2021-09-07 17:03 | disposition home or self-care (01) ==
LOC: BURLABSP 17:02 → BURMANOR 17:03
PROVIDERS: ATTEND Family Medicine
DX: N39.0 Urinary tract infection, site not specified (principal)
CPT/HCPCS: 81003

== ENCOUNTER 2022-01-18 16:07 | Outpatient (CLI) | payer OTHER | END 2022-01-18 16:08 | disposition home or self-care (01) | LOC: BURRAD 16:07 | PROVIDERS: ATTEND Nurse Practitioner Family | DX: U07.1 COVID-19 (principal); I51.7 Cardiomegaly | CPT/HCPCS: 71046 ==

== ENCOUNTER 2022-01-28 13:31 | Outpatient (CLI) | payer OTHER | END 2022-01-28 13:32 | disposition home or self-care (01) | LOC: BURRAD 13:31 | PROVIDERS: ATTEND Nurse Practitioner Family | DX: U09.9 Post COVID-19 condition, unspecified (principal); R91.8 Other nonspecific abnormal finding of lung field | CPT/HCPCS: 71046 ==

== ENCOUNTER 2022-03-15 15:41 | Outpatient (CLI) | payer OTHER ==
[2022-03-15 16:09] LABS: Bilirubin Negative (Negative); Blood, Urine Negative (Negative); Clarity Clear (Clear); Glucose, Urine (Dipstick) Negative (Negative); Ketone, Urine Negative (Negative); Leukocyte Negative (Negative); Nitrite Negative (Negative); Protein, Urine (Dipstick) Negative (Neg-Trace); Urobilinogen 0.2 mg/dL (Less than 2); pH, Urine 5.5 (5.0-9.0)
== END 2022-03-15 15:42 | disposition home or self-care (01) ==
LOC: BURMANOR 15:41
PROVIDERS: ATTEND Nurse Practitioner Family
DX: N39.0 Urinary tract infection, site not specified (principal)
CPT/HCPCS: 81003; 87086

== ENCOUNTER 2022-03-30 16:52 | Outpatient (CLI) | payer OTHER ==
[2022-03-30 17:07] LABS: Bilirubin Negative (Negative); Blood, Urine Negative (Negative); Clarity Clear (Clear); Glucose, Urine (Dipstick) Negative (Negative); Ketone, Urine Trace mg/dL (Negative); Leukocyte Negative (Negative); Nitrite Negative (Negative); Protein, Urine (Dipstick) Negative (Neg-Trace); Specific Gravity, Urine 1.015 (1.005-1.030); Urobilinogen 0.2 mg/dL (Less than 2)
== END 2022-03-30 16:53 | disposition home or self-care (01) ==
LOC: BURMANOR 16:52
PROVIDERS: ATTEND Nurse Practitioner Family
DX: N39.0 Urinary tract infection, site not specified (principal)
CPT/HCPCS: 81003; 87086

== ENCOUNTER 2022-04-16 21:18 | Emergency (ER) | payer OTHER ==
[2022-04-16] MEDS ORDERED: HYDROcodone/Acetaminophen 5/325 mg Tablet ONE (22:29)
== END 2022-04-17 00:22 ==
LOC: BURERS 21:18
DX: S32.019A Unspecified fracture of first lumbar vertebra, initial encounter for closed fracture (principal); I71.40 Abdominal aortic aneurysm, without rupture, unspecified; M89.58 Osteolysis, other site; E78.5 Hyperlipidemia, unspecified; I50.9 Heart failure, unspecified; I11.0 Hypertensive heart disease with heart failure; J44.9 Chronic obstructive pulmonary disease, unspecified; Z87.891 Personal history of nicotine dependence; W18.30XA Fall on same level, unspecified, initial encounter
CPT/HCPCS: 72131; 72192

== ENCOUNTER 2022-10-11 17:38 | Emergency (ER) | payer MEDICARE, OTHER ==
[2022-10-11 18:24] LABS: #Basophils 0.1 thou/uL (0.0-0.2); #Monocytes 0.9 thou/uL (0.11-0.59); #Neutrophils 5.6 thou/uL (1.40-6.50); %Basophils 0.8 % (0.0-1.0); %Eosinophils 0.2 % (0.0-10.0); %Lymphocytes 13.3 % (21.0-51.0); %Monocytes 11.3 % (0.0-10.0); %Neutrophils 74.4 % (42.0-75.0); Hemoglobin 12.4 g/dL (14.0-18.0); Mean Corpuscular HGB CONC 31.6 g/dL (32.0-36.0); Mean Corpuscular Hemoglobin 31.5 pg (27.0-31.0); Mean Corpuscular Volume 99.8 fl (78.0-98.0); Mean Platelet Volume 9.3 fL (7.4-10.4); Platelet Count 181 10x3/uL (130-400); Red Blood Cell (RBC) Count 3.93 mill/uL (4.70-6.10); White Blood Cell (WBC) Count 7.6 10x3/uL (4.8-10.8)
[2022-10-11 18:40] LABS: ALT (SGPT) 13 U/L (8-55); AST (SGOT) 18 U/L (5-34); Albumin 3.5 g/dL (3.4-4.8); Alkaline Phosphatase 100 U/L (40-110); Anion Gap 10 mmol/L (10-20); BUN (Urea Nitrogen) 12 mg/dL (8.4-25.7); Bilirubin, Total 0.8 mg/dL (0.2-1.2); Calc. Creatinine Clearance 0 mL/min (70-130); Calcium 8.9 mg/dL (7.8-10.44); Carbon Dioxide 23 mmol/L (23-31); Chloride 104 mmol/L (98-107); Estimated GFR 91; Globulin 3.3 g/dL (2.4-3.5); Glucose 95 mg/dL (83-110); Potassium 3.7 mmol/L (3.5-5.1); Protein, Total 6.8 g/dL (5.8-8.1); Sodium 133 mmol/L (136-145)
[2022-10-11] MEDS ORDERED: Cefepime 2 GM VIAL ONE (18:58)
[2022-10-11] MEDS ORDERED: Vancomycin 1 GM VIAL ONE (20:08)
[2022-10-12] MEDS ORDERED: Cefepime 2 GM VIAL ONE (06:29)
[2022-10-12] MEDS ORDERED: Vancomycin 1 GM VIAL ONE (06:52)
[2022-10-12] MEDS ORDERED: HYDROmorphone 0.5 MG/0.5 ML SYRINGE ONE (14:56)
[2022-10-12] MEDS ORDERED: HYDROcodone/Acetaminophen 5/325 mg Tablet ONE (17:46)
== END 2022-10-11 19:20 | disposition short-term general hospital (02) ==
LOC: BURERS 17:38
DX: L03.113 Cellulitis of right upper limb (principal); E78.5 Hyperlipidemia, unspecified; D64.9 Anemia, unspecified; Z87.891 Personal history of nicotine dependence; K21.9 Gastro-esophageal reflux disease without esophagitis; I50.9 Heart failure, unspecified; I25.10 Atherosclerotic heart disease of native coronary artery without angina pectoris; M10.9 Gout, unspecified; Z79.899 Other long term (current) drug therapy; Z79.82 Long term (current) use of aspirin
CPT/HCPCS: 36415; 80053; 83605; 85025; 86140; 87040; 96365; 96366; 96367; 96376; J0692; J1170; J3370